=== PATIENT | female | born 1990 | race Two or more races ===

== ENCOUNTER 2018-05-29 03:02 | Emergency (ER) | payer BC ==
[~2018-05-29] VITALS: Ht 165.1 cm; Wt 52.2 kg
[2018-05-29 03:17] VITALS: BP 102/59
--- NOTE | 2018-05-29 03:35 | NUR ---
FLU SWAB COLLECTED AND SENT TO LAB
== END 2018-05-29 04:36 | disposition home or self-care (01) ==
LOC: ER 03:09
DX: J06.9 Acute upper respiratory infection, unspecified (principal)
CPT/HCPCS: 87804 ×2; 99283; A4606; Z7610; 87400